=== PATIENT | female | born 1975 | race Caucasian/White ===

== ENCOUNTER 2024-02-28 09:15 | Outpatient (CLI) | payer BC | END 2024-02-28 09:16 | disposition home or self-care (01) | LOC: CSHMAMMO 09:15 | PROVIDERS: ATTEND Advanced Practice Midwife | DX: Z12.31 Encounter for screening mammogram for malignant neoplasm of breast (principal); Z80.3 Family history of malignant neoplasm of breast | CPT/HCPCS: 77063; 77067 ==

== ENCOUNTER 2024-03-14 09:40 | Day surgery (SDC) | payer BC ==
[2024-03-13 15:45] VITALS: BMI 32.0
[2024-03-13 16:37] LABS: Hematocrit 36.9 % (34.9-44.5); Hemoglobin 12.5 g/dL (12.0-15.5); Mean Corpuscular HGB CONC 33.9 g/dL (32.0-36.0); Mean Corpuscular Hemoglobin 29.9 pg (27.0-33.0); Mean Corpuscular Volume 88.3 fL (81.6-98.3); Mean Platelet Volume 8.9 fL (7.4-10.4); Platelet Count 381 10x3/uL (150-450); RBC Distribution Width 13.4 % (11.5-14.5); Red Blood Cell (RBC) Count 4.18 10x6/uL (3.90-5.03); White Blood Cell (WBC) Count 7.9 10x3/uL (3.5-10.5)
[2024-03-13 16:48] LABS: BHCG - Serum Negative (NEGATIVE); Pregs Control Background? CLEAR/WHITE (CLR/WHITE); Pregs Control Bar Appear? YES (CONTROL BAR)
[2024-03-14] MEDS ORDERED: CeleCOXIB 100 MG CAP ONE (09:52)
[2024-03-14] MEDS ORDERED: PROPOFOL 20 ML ONE (12:18)
[2024-03-14] MEDS ORDERED: Midazolam HCl 2 mg/2 ml Vial ONE (12:18)
[2024-03-14] MEDS ORDERED: Bupivacaine 0.25% HCL 30 ML VIAL ONE (12:18)
[2024-03-14] MEDS ORDERED: Dexamethasone 20 MG/5 ML VIAL ONE (12:18)
[2024-03-14] MEDS ORDERED: fentaNYL 50 mcg/mL 1 mL Vial ONE (12:18)
[2024-03-14] MEDS ORDERED: Lidocaine 1% PF 5 ML VIAL ONE (12:18)
[2024-03-14] MEDS ORDERED: Ondansetron PF 4 MG/2 ML Vial ONE (12:18)
[2024-03-14] MEDS ORDERED: CEFAZOLIN 2 GM VIAL ONE (12:23)
[2024-03-14] MEDS ORDERED: Bupivacaine/Epinephrine 0.25% 30 ML VIAL ONE (13:10)
== END 2024-03-14 14:50 | disposition home or self-care (01) ==
LOC: CSHSDC 09:40
PROVIDERS: ATTEND Obstetrics & Gynecology
PROC: 0UBG0ZZ Excision of Vagina, Open Approach (ICD-10-PCS; principal; 2024-03-14)
DX: D28.1 Benign neoplasm of vagina (principal); N92.6 Irregular menstruation, unspecified; R87.810 Cervical high risk human papillomavirus (HPV) DNA test positive
CPT/HCPCS: 84703; 85027; 86850; 86900; 86901; 88307; 88341; 88342; 88360; J0665; J1100; J2250; J2405; J2704; J3010

== ENCOUNTER 2025-06-05 12:24 | Outpatient (CLI) | payer BC | END 2025-06-05 12:25 | disposition home or self-care (01) | LOC: CSHMAMMO 12:24 | PROVIDERS: ATTEND Advanced Practice Midwife | DX: Z12.31 Encounter for screening mammogram for malignant neoplasm of breast (principal); Z80.3 Family history of malignant neoplasm of breast | CPT/HCPCS: 77063; 77067 ==